=== PATIENT | male | born 1980 | race Caucasian/White ===

== ENCOUNTER 2018-11-13 11:06 | Emergency (ER) | payer BC, OTHER ==
--- NOTE | 2018-11-13 12:13 | EDPHYS ---
Physician Documentation [facility] Name: Harjit Garcia Age: 37 yrs Sex: Male : 1980 Arrival Date: 11/13/2018 Time: 11:11 Bed 10 Private MD: None, None ED Physician Satniago Azevedo HPI: 11/13 12:09 This 37 yrs old Male presents to ER via Ambulatory with complaints of Back jr8 Pain. 12:09 The patient presents with pain that is acute. The symptoms are located in the low back. jr8 Onset: The symptoms/episode began/occurred acutely, yesterday. The pain does not radiate. Associated signs and symptoms: The patient has no apparent associated signs or symptoms. The problem was sustained from twisting. Modifying factors: The patient symptoms are alleviated by nothing, the patient symptoms are aggravated by any movement. Severity of symptoms: At their worst the symptoms were moderate, in the emergency department the symptoms are unchanged. The patient has experienced similar episodes in the past, a few times. The patient has not recently seen a physician. Patient with history of back spasms in the past. Stated that he twisted wrong getting into his car causing back spasm. Cannot control pain with OTC medications . Historical: - Allergies: 11:36 No Known Allergies; sg - PMHx: 11:36 broken left ankle; sg - PSHx: 11:36 left ankel repair; sg - Immunization history:: Adult Immunizations not up to date. - Social history:: Smoking status: Patient uses tobacco products, smokes one pack cigarettes per day. - Ebola Screening: : Patient negative for fever greater than or equal to 101.5 degrees Fahrenheit, and additional compatible Ebola Virus Disease symptoms Patient denies exposure to infectious person Patient denies travel to an Ebola-affected area in the 21 days before illness onset No symptoms or risks identified at this time. ROS: 12:09 Eyes: Negative for injury, pain, redness, and discharge, ENT: Negative for injury, jr8 pain, and discharge, Neck: Negative for injury, pain, and swelling, Cardiovascular: Negative for chest pain, palpitations, and edema, Respiratory: Negative for shortness of breath, cough, wheezing, and pleuritic chest pain, Abdomen/GI: Negative for abdominal pain, nausea, vomiting, diarrhea, and constipation, MS/Extremity: Negative for injury and deformity, Skin: Negative for injury, rash, and discoloration, Neuro: Negative for headache, weakness, numbness, tingling, and seizure. 12:09 Back: Positive for pain at rest, pain with movement, of the left low back and left mid back. Exam: 12:09 Eyes: Pupils equal round and reactive to light, extra-ocular motions intact. Lids and jr8 lashes normal. Conjunctiva and sclera are non-icteric and not injected. Cornea within normal limits. Periorbital areas with no swelling, redness, or edema. ENT: Nares patent. No nasal discharge, no septal abnormalities noted. Tympanic membranes are normal and external auditory canals are clear. Oropharynx with no redness, swelling, or masses, exudates, or evidence of obstruction, uvula midline. Mucous membranes moist. Neck: Trachea midline, no thyromegaly or masses palpated, and no cervical lymphadenopathy. Supple, full range of motion without nuchal rigidity, or vertebral point tenderness. No Meningismus. Cardiovascular: Regular rate and rhythm with a normal S1 and S2. No gallops, murmurs, or rubs. Normal PMI, no JVD. No pulse deficits. Respiratory: Lungs have equal breath sounds bilaterally, clear to auscultation and percussion. No rales, rhonchi or wheezes noted. No increased work of breathing, no retractions or nasal flaring. Abdomen/GI: Soft, non-tender, with normal bowel sounds. No distension or tympany. No guarding or rebound. No evidence of tenderness throughout. Skin: Warm, dry with normal turgor. Normal color with no rashes, no lesions, and no evidence of cellulitis. MS/ Extremity: Pulses equal, no cyanosis. Neurovascular intact. Full, normal range of motion. Neuro: Awake and alert, GCS 15, oriented to person, place, time, and situation. Cranial nerves II-XII grossly intact. Motor strength 5/5 in all extremities. Sensory grossly intact. Cerebellar exam normal. Normal gait. 12:09 Back: pain, that is moderate, of the left low back and left mid back, ROM is painful, normal spinal alignment noted, CVA tenderness, is absent, muscle spasm, is appreciated in the left low back and left mid back. Vital Signs: 11:35 Pulse 86; Resp 17; Temp 98.0; Pulse Ox 100% on R/A; Pain 10/10; sg 11:37 BP 131 / 83; Weight 92.99 kg; Height 5 ft. 8 in. (172.72 cm); sg 11:37 Body Mass Index 31.17 (92.99 kg, 172.72 cm) MDM: 11:38 Patient medically screened. jr8 12:09 Data reviewed: vital signs, nurses notes, and as a result, I will discharge patient. jr8 Data interpreted: Pulse oximetry: on room air is 100 %. Interpretation: normal. Counseling: I had a detailed discussion with the patient and/or guardian regarding: the historical points, exam findings, and any diagnostic results supporting the discharge/admit diagnosis, the need for outpatient follow up, a family practitioner, to return to the emergency department if symptoms worsen or persist or if there are any questions or concerns that arise at home. Administered Medications: 12:26 Drug: TORadol 60 mg Route: IM; Site: left ventrogluteal; iw 12:26 Drug: predniSONE 60 mg Route: PO; iw Disposition: 15:40 Co-signature as Attending Physician, Santiago Azevedo MD I agree with the assessment and brianna plan of care. Disposition: 11/13/18 12:12 Discharged to Home. Impression: Muscle spasm of back. - Condition is Stable. - Discharge Instructions: Muscle Cramps and Spasms, Back Injury Prevention, [id number], Back Exercises, [id number], Heat Therapy. - Prescriptions for Prednisone 20 mg Oral Tablet - take 3 tablet by ORAL route once daily for 5 days; 15 tablet. Ultracet 37.5- 325 mg Oral Tablet - take 2 tablet by ORAL route every 6 hours - for up to 5 days; do not exceed 8 tablets per day.; 30 tablet. Zanaflex 4 mg Oral Tablet - take 1 tablet by ORAL route every 8 hours As needed; 20 tablet. - Work release form, Medication Reconciliation Form, Thank You Letter, Antibiotic Education, Prescription Opioid Use form. - Follow up: Private Physician; When: 5 - 6 days; Reason: Recheck today's complaints, Continuance of care, Re-evaluation by your physician. - Problem is new. - Symptoms have improved. Signatures: Cachorro Goddard RN RN sg Anderson, Corey, MD MD cha Williams, Irene, RN RN Ed Perez PA PA jr8 Corrections: (The following items were deleted from the chart) 13:01 12:13 11/13/2018 12:12 Discharged to Home. Impression: Muscle spasm of back. Condition iw is Stable. Forms are Medication Reconciliation Form, Thank You Letter, Antibiotic Education, Prescription Opioid Use. Follow up: Private Physician; When: 5 - 6 days; Reason: Recheck today's complaints, Continuance of care, Re-evaluation by your physician. Problem is new. Symptoms have improved. jr8
--- NOTE | 2018-11-13 12:13 | ER ---
Nurse's Notes [facility] Name: Harjit Garcia Age: 37 yrs Sex: Male : 1980 Arrival Date: 11/13/2018 Time: 11:11 Bed 10 Private MD: None, None Diagnosis: Muscle spasm of back Presentation: 11/13 11:36 Presenting complaint: Patient states: Back pain, denies trauma, reports has pulled his sg back in the past, reports he was getting into his car and pulled himself inside when it back painful, worsens with ambulation. Transition of care: patient was not received from another setting of care. Onset of symptoms was November 13, 2018. Risk Assessment: Do you want to hurt yourself or someone else? Patient reports no desire to harm self or others. Initial Sepsis Screen: Does the patient meet any 2 criteria? No. Patient's initial sepsis screen is negative. Does the patient have a suspected source of infection? No. Patient's initial sepsis screen is negative. Care prior to arrival: None. 11:36 Method Of Arrival: Ambulatory sg 11:36 Acuity: EDMUND 4 sg Triage Assessment: 13:00 General: Appears in no apparent distress. iw 13:00 General: Behavior is calm, cooperative. Musculoskeletal: Range of motion: intact in all iw extremities. Historical: - Allergies: 11:36 No Known Allergies; sg - PMHx: 11:36 broken left ankle; sg - PSHx: 11:36 left ankel repair; sg - Immunization history:: Adult Immunizations not up to date. - Social history:: Smoking status: Patient uses tobacco products, smokes one pack cigarettes per day. - Ebola Screening: : Patient negative for fever greater than or equal to 101.5 degrees Fahrenheit, and additional compatible Ebola Virus Disease symptoms Patient denies exposure to infectious person Patient denies travel to an Ebola-affected area in the 21 days before illness onset No symptoms or risks identified at this time. Screenin:00 Abuse screen: Denies threats or abuse. Denies injuries from another. Nutritional iw screening: No deficits noted. Tuberculosis screening: No symptoms or risk factors identified. Fall Risk None identified. Assessment: 12:00 General: Appears in no apparent distress. comfortable, Behavior is calm, cooperative. iw Pain: Complains of pain in left mid back and left low back. Neuro: Level of Consciousness is awake, alert, obeys commands, Oriented to person, place, time, situation, Moves all extremities. Cardiovascular: Patient's skin is warm and dry. Vital Signs: 11:35 Pulse 86; Resp 17; Temp 98.0; Pulse Ox 100% on R/A; Pain 10/10; sg 11:37 BP 131 / 83; Weight 92.99 kg; Height 5 ft. 8 in. (172.72 cm); sg 11:37 Body Mass Index 31.17 (92.99 kg, 172.72 cm) sg ED Course: 11:11 Patient arrived in ED. mr 11:11 None, None is Private Physician. mr 11:37 Triage completed. sg 11:37 Arm band placed on. sg 11:38 Ed Perez PA is PHCP. jr8 11:38 Santiago Azevedo MD is Attending Physician. jr8 12:00 Patient has correct armband on for positive identification. iw 12:12 Mary Kate Friedman, RN is Primary Nurse. iw 13:00 No provider procedures requiring assistance completed. Patient did not have IV access iw during this emergency room visit. Administered Medications: 12:26 Drug: TORadol 60 mg Route: IM; Site: left ventrogluteal; iw 12:26 Drug: predniSONE 60 mg Route: PO; iw Outcome: 12:12 Discharge ordered by . jr8 13:00 Discharged to home ambulatory. iw 13:00 Condition: good 13:00 Discharge instructions given to patient, Instructed on discharge instructions, follow up and referral plans. medication usage, Demonstrated understanding of instructions, follow-up care, medications, Prescriptions given X 3. 13:01 Patient left the ED. iw Signatures: Cachorro Goddard RN THOMAS RosadoRose mr Mary Kate Friedman, RN RN Ed Perez PA PA jr8 Corrections: (The following items were deleted from the chart) 12:37 12:26 TORadol 60 mg IM in right ventrogluteal iw iw
[2018-11-13] MEDS ORDERED: predniSONE 20 MG TAB ONE (12:36)
[2018-11-13] MEDS ORDERED: KETOROLAC 30 MG/ML INJ ONE (12:36)
[2018-11-13 13:07] VITALS: BP 131/83; TEMP 98; O2SAT 100
== END 2018-11-13 13:01 | disposition home or self-care (01) ==
LOC: ER 11:06
DX: M62.830 Muscle spasm of back (principal); F17.210 Nicotine dependence, cigarettes, uncomplicated
CPT/HCPCS: 96372; 99283; J7512

== ENCOUNTER 2021-06-02 08:23 | Day surgery (SDC) | payer SELFPAY ==
[2021-06-02] MEDS ORDERED: Ringers Lactate 1,000 ML IV ONE ×2 (09:13→16:05)
[2021-06-02] MEDS ORDERED: CEFAZOLIN/SWI 1gm 1 GM/10 ML SYR ONE (09:13)
[2021-06-02] MEDS ORDERED: MIDAZOLAM HCL 2 MG/2 ML INJ ONE ×2 (10:54→12:10)
[2021-06-02] MEDS ORDERED: BUPIVACAINE 0.25% PF 30 ML VIAL ONE (11:53)
[2021-06-02] MEDS ORDERED: FENTANYL CITR 100 MCG/2 ML ONE (12:09)
[2021-06-02] MEDS ORDERED: propofoL 200 MG/20 ML VIAL IV ONE (12:10)
[2021-06-02] MEDS ORDERED: LIDOCAINE 1% MPF 5 ML VIAL ONE (12:10)
[2021-06-02] MEDS ORDERED: ONDANSETRON 4 MG/2 ML VIAL ONE ×2 (12:21→16:41)
[2021-06-02] MEDS ORDERED: KETOROLAC 30 MG/ML INJ ONE (12:21)
--- NOTE | 2021-06-02 13:20 | P.OP ---
Preoperative diagnosis: RIGHT inguinal Hernia Postoperative diagnosis: Right Inguinal Hernia Primary procedure: Open RIGHT inguinal hernia repair with mesh Anesthesia: GETA + Local Estimated blood loss: <10cc Specimen: Bard Perfix medium plug and patch Findings: Indirect inguinal hernia, cord lipoma Complications: None Implants: Medium Bard perfix plug and patch Transferred to: Recovery Room () Condition: Good
[2021-06-02] MEDS: HYDROMORPHONE HCL 1 MG/ML INJ ONE ×2 (13:39→13:46)
[2021-06-02] MEDS ORDERED: MEPERIDINE HCL 25 MG/ML SYR ONE ×2 (14:03→14:16)
[2021-06-02] MEDS ORDERED: PROMETHAZINE INJ 25 MG/ML AMP ONE (14:36)
[2021-06-02 16:38] VITALS: BP 120/68; TEMP 97.6; O2SAT 100
--- NOTE | 2021-06-02 19:51 | OP ---
Date of Procedure: 06/02/2021 Surgeon: Harish Kasper MD, Preoperative Diagnosis: Right inguinal hernia. Postoperative Diagnosis: Right inguinal hernia. Procedure Performed: Open right inguinal hernia repair with mesh. Anesthesia: General endotracheal plus local with 0.25% Marcaine. Estimated Blood Loss: Less than 10 mL. Specimen: Bard PerFix medium plug and patch hernia repair system. Findings: Indirect inguinal hernia and a cord lipoma. Complications: None. Implants: Medium Bard PerFix plug and patch hernia repair system. Disposition: The patient transferred to recovery room in good condition. Procedure In Detail: After informed consent was obtained, the patient was brought to the operating r oom, prepped and draped in the usual sterile fashion. After adequate anesthesia was achieved, an ing uinal incision was made on the right down through the subcutaneous tissues using a 15 blade. Electro cautery was used to dissect down through Camper's fat and Sterling's fascia, to expose the external obl ique aponeurosis, which was entered sharply with a 15 blade. I then opened in its entirety using Met zenbaum scissors, protecting the ilioinguinal nerve throughout. At this point, I encircled the sperm atic cord and structures with a Surya drain, and then dissected down to the medial aspect and found an indirect inguinal hernia coming off the medial aspect of the cord structures. I opened the herni a sac at this point and dissected it off the spermatic cord and structures. Once it was dissected fr ee, it was ligated at this point, and the tissue was passed off. A cord lipoma was then pulled off t he spermatic cord and structures, and sent off for pathologic examination as well. I then brought a medium plug and placed it in the preperitoneal space. After placing the patient in steep Trendelenbu rg, returned the omentum to the preperitoneal space. I then secured the mesh circumferentially aroun d using a 3-0 PDS suture in a circumferential fashion and closed the defect over the top. At this po int, the patch was sized appropriately and brought on the field. Everything was hydrated appropriate ly. The wound was copiously irrigated and dried at this point, and the patch was placed in an onlay position, securing it medial to the pubic tubercle and medially to the internal oblique aponeurosis a s well as to the shelving edge of the external oblique aponeurosis near the inguinal ligament on the lateral aspect. I reconstituted the deep inguinal ring at this point, irrigated the area once again, dried it, and then closed the external oblique aponeurosis over the top using a running 3-0 Vicryl s uture and closed the deep dermal plane using the same set of 3-0 Vicryl suture and the skin was close d with a 4-0 Monocryl in a running fashion. Dermabond was placed over top. The patient tolerated th e procedure well without evidence of complication, and transferred to PACU in good condition. All co unts were correct at the end of the case. KAMILA/LEIGH Voice ID: [id number] Report ID: [id number]
== END 2021-06-02 16:30 | disposition home or self-care (01) ==
LOC: OR 08:23
PROVIDERS: ATTEND Surgery
PROC: 0YU50JZ Supplement Right Inguinal Region with Synthetic Substitute, Open Approach (ICD-10-PCS; principal; 2021-06-02 10:30)
DX: K40.90 Unilateral inguinal hernia, without obstruction or gangrene, not specified as recurrent (principal); Z20.822 Contact with and (suspected) exposure to COVID-19
CPT/HCPCS: 88302; J0690; J1170; J2175; J2250; J2405; J2550; J2704; J3010; J7120; U0003

== ENCOUNTER 2022-03-12 09:13 | Emergency (ER) | payer SELFPAY ==
--- NOTE | 2022-03-12 10:50 | RAD REPORT ---
EXAM DESCRIPTION: RAD - Elbow Left 3 View - 03/12/2022 10:43 am CLINICAL HISTORY: elbow pain COMPARISON: No comparisons FINDINGS: No acute fracture. No malalignment. No significant focal degenerative changes. IMPRESSION: No acute osseous abnormality involving the left elbow.
--- NOTE | 2022-03-12 11:08 | EDPHYS ---
Physician Documentation [facility] Name: Harjit Garcia Age: 41 yrs Sex: Male : 1980 Arrival Date: 03/12/2022 Time: 09:14 Bed Treatment Private MD: [place] Physician Santiago Azevedo HPI: 03/12 09:52 This 41 yrs old Male presents to ER via Ambulatory with complaints of Elbow Injury - jmm left, Arm Injury. 09:52 The patient or guardian complains of injury, pain. Onset: The symptoms/episode jmm began/occurred acutely. This is a 41-year-old male with no chronic conditions presents emerged part with complaints of ongoing left elbow pain. Initially was hit against a beam while working under #this past December. Patient complains of ongoing pain, particular when he flexes his wrist. Denies other known injury.. Historical: - PMHx: 10:02 broken left ankle; iw ROS: 09:52 Constitutional: Negative for fever, chills, and weight loss, Cardiovascular: Negative jmm for chest pain, palpitations, and edema, Respiratory: Negative for shortness of breath, cough, wheezing, and pleuritic chest pain. 09:52 MS/extremity: Positive for injury or acute deformity. 09:52 All other systems are negative. Exam: 09:52 Constitutional: This is a well developed, well nourished patient who is awake, alert, jmm and in no acute distress. Head/Face: atraumatic. Eyes: EOMI, no conjunctival erythema appreciated ENT: Moist Mucus Membranes Neck: Trachea midline, Supple Chest/axilla: Normal chest wall appearance and motion. Cardiovascular: Regular rate and rhythm. No edema appreciated Respiratory: Normal respirations, no respiratory distress appreciated Abdomen/GI: Non distended, soft Back: Normal ROM Skin: General appearance color normal 09:52 Musculoskeletal/extremity: Left lateral elbow pain on palpation, compartments are soft, full radial pulse, full senior director strength, neurovascular intact. 09:52 Skin: Appearance: Color: normal in color. 09:52 Neuro: Orientation: appropriate for stated age, Mentation: is normal, Memory: is normal. 09:52 Psych: Behavior/mood is pleasant, cooperative. Vital Signs: 11:15 BP 134 / 66; Pulse 53; Resp 16; Temp 97.6(O); Pulse Ox 99% ; mh5 MDM: 09:52 Patient medically screened. [facility] 11:06 Data reviewed: vital signs, nurses notes. Counseling: I had a detailed discussion with [facility] the patient and/or guardian regarding: the historical points, exam findings, and any diagnostic results supporting the discharge/admit diagnosis, radiology results, the need for outpatient follow up, to return to the emergency department if symptoms worsen or persist or if there are any questions or concerns that arise at home. 03/12 09:55 Order name: Elbow Left 3 View XRAY; Complete Time: 10:56 [facility] Administered Medications: No medications were administered Disposition Summary: 03/12/22 11:07 Discharge Ordered Location: Home [facility] Condition: Stable [facility] Diagnosis - Lateral epicondylitis, left elbow [facility] Followup: [facility] - With: Reginald Coleman MD - When: 2 - 3 days - Reason: Recheck today's complaints, Continuance of care, Re-evaluation by your physician Discharge Instructions: - Discharge Summary Sheet [facility] - Tennis Elbow [facility] - Tennis Elbow Rehab-SportsMed [facility] Forms: - Medication Reconciliation Form [facility] - Thank You Letter [facility] - Antibiotic Education [facility] - Prescription Opioid Use [facility] Prescriptions: - Diclofenac Sodium 75 mg Oral Tablet Sustained Release - take 1 tablet by ORAL route 2 times per day; 30 tablet; Refills: 0, Product [facility] Selection Permitted - orphenadrine citrate 100 mg Oral Tablet Sustained Release - take 1 tablet by ORAL route 2 times per day As needed; 20 tablet; Refills: 0, [facility] Product Selection Permitted Signatures: Dispatcher [employer] Santiago Orozco MD MD cha Mickail, Joel, PA PA jmm Williams, Irene, RN RN iw
--- NOTE | 2022-03-12 11:08 | ER ---
Nurse's Notes [facility] Name: Harjit Garcia Age: 41 yrs Sex: Male : 1980 Arrival Date: 03/12/2022 Time: 09:14 Bed Treatment Private MD: Diagnosis: Lateral epicondylitis, left elbow Presentation: 03/12 10:01 Chief complaint: Patient states: knocked his left elbow while working, has had pain iw since December. Coronavirus screen: At this time, the client does not indicate any symptoms associated with coronavirus-19. Ebola Screen: Patient negative for fever greater than or equal to 101.5 degrees Fahrenheit, and additional compatible Ebola Virus Disease symptoms Patient denies exposure to infectious person. Patient denies travel to an Ebola-affected area in the 21 days before illness onset. No symptoms or risks identified at this time. Initial Sepsis Screen: Does the patient meet any 2 criteria? No. Patient's initial sepsis screen is negative. Does the patient have a suspected source of infection? No. Patient's initial sepsis screen is negative. Risk Assessment: Do you want to hurt yourself or someone else? Patient reports no desire to harm self or others. Onset of symptoms was December 2021. 10:01 Method Of Arrival: Ambulatory iw 10:01 Acuity: EDMUND 4 iw Historical: - PMHx: 10:02 broken left ankle; iw Vital Signs: 11:15 BP 134 / 66; Pulse 53; Resp 16; Temp 97.6(O); Pulse Ox 99% ; mh5 ED Course: 09:14 Patient arrived in ED. am2 09:40 Paras Clifford PA is PHCP. [facility] 09:40 Santiago Azevedo MD is Attending Physician. jmm 10:01 Mary Kate Friedman, THOMAS is Primary Nurse. iw 10:02 Triage completed. iw 10:03 Arm band placed on. iw 10:45 Elbow Left 3 View XRAY In Process Unspecified. EDMS 11:07 Reginald Coleman MD is Referral Physician. [facility] Administered Medications: No medications were administered Outcome: 11:07 Discharge ordered by . m 11:26 Patient left the ED. iw Signatures: Dispatcher [employer] EDMS Paras Clifford PA PA Mary Kate Sprague, THOMAS RN Laura Altman [facility] Sheree Talbot am2
[2022-03-12 12:09] VITALS: BP 134/66; TEMP 97.6; O2SAT 99
== END 2022-03-12 11:26 | disposition home or self-care (01) ==
LOC: ER 09:13
DX: M77.12 Lateral epicondylitis, left elbow (principal)
CPT/HCPCS: 99282